=== PATIENT | female | born 1955 | race Caucasian/White ===

== ENCOUNTER 2020-02-19 07:19 | Outpatient (CLI) | payer MEDICARE ==
--- NOTE | 2020-02-19 07:52 | ULT ---
Ultrasound of the abdominal aorta: 02/19/2020 HISTORY: Screening examination for abdominal aortic aneurysm TECHNIQUE: Multiplanar grayscale sonographic imaging of the abdominal aorta obtained. Imaging include s Doppler interrogation with color flow and spectral analysis FINDINGS: Proximal abdominal aorta measures up to 1.9 cm, mid abdominal aorta measures up to 1.5 cm, and distal abdominal aorta measures up to 2.4 cm. The left common iliac artery measures in the 5 mm range as does the right common iliac artery. Scattered areas of atherosclerotic calcification are see n throughout the abdominal aorta. No sonographic evidence of abdominal aortic aneurysm. IMPRESSION: Screening examination for abdominal aortic aneurysm demonstrates no aneurysmal dilatation .
== END 2020-02-19 07:20 | disposition home or self-care (01) ==
LOC: BICULT 07:19
PROVIDERS: ATTEND Family Medicine
DX: F17.210 Nicotine dependence, cigarettes, uncomplicated (principal); Z82.49 Family history of ischemic heart disease and other diseases of the circulatory system
CPT/HCPCS: 76775

== ENCOUNTER 2020-07-15 11:01 | Outpatient (CLI) | payer MEDICARE | END 2020-07-15 11:02 | disposition home or self-care (01) | LOC: BICCT 11:01 | PROVIDERS: ATTEND Family Medicine | DX: Z12.2 Encounter for screening for malignant neoplasm of respiratory organs (principal); F17.210 Nicotine dependence, cigarettes, uncomplicated; J43.9 Emphysema, unspecified | CPT/HCPCS: 71271 ==